=== PATIENT | female | born 1945 | race African-American/Black ===

== ENCOUNTER 2017-03-10 23:59 | Inpatient (IN) | payer OTHER ==
[~2017-03-10] VITALS: Ht 160 cm; Wt 59.9 kg
[2017-03-11] MEDS ORDERED: ONDANSETRON HCL 4MG/2ML VIAL IV STA ×2 (00:40→04:17)
[2017-03-11] MEDS ORDERED: SODIUM CHLORIDE 0.9% 1,000 ML IV ONE (00:40)
[2017-03-11 01:04] LABS: BASOPHILS % 0.4 % (0.0-2.0); EOSINOPHILS % 1.3 % (0.0-5.0); HEMATOCRIT. 29.5 % (36.0-48.0); HEMOGLOBIN. 9.3 g/dL (12.0-16.0); LYMPHOCYTES % 31.5 % (20.0-50.0); MEAN PLATELET VOLUME 6.7 fl (7.4-10.4); NEUTROPHILS % 65.8 % (40.0-76.0); PLATELET 421 x1000/uL (130-400); RED BLOOD CELL COUNT 4.04 mill/uL (4.2-5.4); RED CELL DISTRIBUTION WIDTH 21.4 % (11.6-14.6)
[2017-03-11 01:06] LABS: CHLORIDE 99 mEq/L (98-107)
[2017-03-11 01:15] LABS: CARBON DIOXIDE 23 mEq/L (21-32)
[2017-03-11] MEDS ORDERED: SODIUM CHLORIDE 0.9% 1,000 ML IV SCH ×2 (04:17→10:49)
[2017-03-11 08:00] VITALS: BP 106/70
[2017-03-11 09:15] VITALS: BP 106/70
[2017-03-11] MEDS ORDERED: MAGNESIUM/ALUMINUM HYDROXIDE/SIMETHICONE 30ML UDC PO PRN (11:00)
[2017-03-11] MEDS ORDERED: DIPHENHYDRAMINE 50MG/ML VIAL IV PRN (11:00)
[2017-03-11] MEDS ORDERED: ONDANSETRON HCL 4MG/2ML VIAL IV PRN (11:00)
[2017-03-11] MEDS ORDERED: ACETAMINOPHEN 325MG TABLET PO PRN (11:00)
[2017-03-11] MEDS ORDERED: HYDROCODONE/ACETAMINOPHEN 5/325MG TABLET PO PRN (11:00)
[2017-03-11] MEDS ORDERED: FAMOTIDINE 20MG/2ML VIAL IV SCH (11:00)
[2017-03-11] MEDS ORDERED: MORPHINE SULFATE 4 MG/ML CPJ (NOT FOR IM USE) IV PRN (11:15)
[2017-03-11 12:00] VITALS: BP 114/71
[2017-03-11] MEDS ORDERED: SODIUM CHLORIDE 0.9% 10ML VIAL ONE (13:42)
[2017-03-11] MEDS ORDERED: IOHEXOL-300 100 ML BOTTLE ONE (13:42)
== END 2017-03-11 13:15 | disposition left against medical advice (07) | DRG 439 ==
LOC: ER 23:59 → 5WST 03-11 04:19 → EDBEDREQ 03-11 04:24 → ENRESERV 03-11 07:06
PROVIDERS: ADMIT Internal Medicine; ATTEND Internal Medicine
DX: K85.90 Acute pancreatitis without necrosis or infection, unspecified (principal); C22.9 Malignant neoplasm of liver, not specified as primary or secondary; Z53.21 Procedure and treatment not carried out due to patient leaving prior to being seen by health care provider; Z88.8 Allergy status to other drugs, medicaments and biological substances; Z92.21 Personal history of antineoplastic chemotherapy
CPT/HCPCS: 36415; 71010; 74177; 80053; 83605; 83690; 85025; 96361; 96374; 96376; 99285; A4216; J2405; J7030; Q9967